=== PATIENT | female | born 1975 | race Caucasian/White ===

== ENCOUNTER 2021-04-16 08:10 | Outpatient (CLI) | payer OTHER ==
[2021-04-16 09:31] LABS: #Basophils 0.1 10x3/uL (0.0-0.2); #Eosinphils 0.1 10x3/uL (0.0-0.5); #Monocytes 0.5 10x3/uL (0.0-1.1); %Eosinophils 2.2 % (0.0-6.0); %Monocytes 7.9 % (0.0-10.0); %Neutrophils 51.4 % (40.0-75.0); Hemoglobin 13.7 g/dL (12.0-15.5); Mean Corpuscular HGB CONC 33.7 g/dL (32.0-36.0); Mean Corpuscular Hemoglobin 30.6 pg (27.0-33.0); Mean Corpuscular Volume 90.8 fl (81.6-98.3); Mean Platelet Volume 9.8 fl (7.4-10.4); Platelet Count 266 10x3/uL (150-450); RBC Distribution Width 12.4 % (11.5-14.5); Red Blood Cell (RBC) Count 4.47 10x6/uL (3.90-5.03); White Blood Cell (WBC) Count 5.8 10x3/uL (3.5-10.5)
[2021-04-16 10:02] LABS: ALT (SGPT) 29 U/L (8-55); AST (SGOT) 18 U/L (5-34); Albumin 4.2 g/dL (3.5-5.0); Alkaline Phosphatase 77 U/L (40-110); Anion Gap 15 mmol/L (10-20); BUN (Urea Nitrogen) 14 mg/dL (7.0-18.7); Bilirubin, Direct 0.1 mg/dL (0.1-0.3); Bilirubin, Total 0.4 mg/dL (0.2-1.2); Calc. Creatinine Clearance 0 mL/min (70-130); Calcium 9.2 mg/dL (7.8-10.44); Carbon Dioxide 22 mmol/L (22-29); Chloride 106 mmol/L (98-107); Globulin 2.5 g/dL (2.4-3.5); Glucose 99 mg/dL (70-105); Potassium 4.8 mmol/L (3.5-5.1); Protein, Total 6.7 g/dL (6.0-8.3); Sodium 138 mmol/L (136-145)
== END 2021-04-16 08:11 | disposition home or self-care (01) ==
LOC: LABBT 08:10
PROVIDERS: ATTEND Surgery
DX: Z01.812 Encounter for preprocedural laboratory examination (principal); K81.9 Cholecystitis, unspecified
CPT/HCPCS: 80053; 80076; 85025

== ENCOUNTER 2021-04-21 06:50 | Day surgery (SDC) | payer OTHER ==
[2021-04-18 10:47] VITALS: BMI 29.0
[2021-04-21] MEDS ORDERED: cefOXitin Sodium/Dextrose 2 GM/50 ML BAG ONE (06:59)
[2021-04-21] MEDS ORDERED: Bupivacaine 0.25% HCL 30 ML VIAL ONE (07:56)
[2021-04-21] MEDS ORDERED: Lidocaine 1% w/Epinephrine 1:100K 20 ML VIAL ONE (07:56)
[2021-04-21] MEDS ORDERED: Fentanyl 100 MCG/2 ML VIAL ONE (08:21)
[2021-04-21] MEDS ORDERED: Rocuronium Bromide 10 MG/ML (10ML VIAL) ONE (08:35)
[2021-04-21] MEDS ORDERED: Dexamethasone 20 MG/5 ML VIAL ONE (08:35)
[2021-04-21] MEDS ORDERED: Ketorolac Tromethamine 30 MG/ML VIAL ONE (08:35)
[2021-04-21] MEDS ORDERED: PROPOFOL 200 MG/20 ML VIAL ONE (08:35)
[2021-04-21] MEDS ORDERED: Lidocaine 1% PF 5 ML VIAL ONE (08:35)
[2021-04-21] MEDS ORDERED: Glycopyrrolate 0.2 MG/ML 5 ML SYRINGE ONE (08:35)
[2021-04-21] MEDS ORDERED: SUGAMMADEX SODIUM 200 MG/2 ML VIAL ONE ×2 (09:05→09:18)
[2021-04-21] MEDS ORDERED: Promethazine HCl 25 MG/ML VIAL ONE (09:34)
[2021-04-21] MEDS ORDERED: Ondansetron PF 4 MG/2 ML Vial ONE (10:28)
[2021-04-21] MEDS ORDERED: HYDROcodone/Acetaminophen 5/325 mg Tablet ONE (10:56)
== END 2021-04-21 11:30 | disposition home or self-care (01) ==
LOC: SDC 06:50
PROVIDERS: ATTEND Surgery
PROC: 0FT44ZZ Resection of Gallbladder, Percutaneous Endoscopic Approach (ICD-10-PCS; principal; 2021-04-21)
DX: K81.1 Chronic cholecystitis (principal); K82.8 Other specified diseases of gallbladder; Z79.899 Other long term (current) drug therapy
CPT/HCPCS: 88304; J0694; J1100; J1885; J2405; J2550; J2704; J3010; S0020